=== PATIENT | male | born 1985 | race Two or more races ===

== ENCOUNTER 2016-07-08 21:25 | Emergency (ER) | payer BC ==
[~2016-07-08] VITALS: Ht 182.9 cm; Wt 88.9 kg
--- NOTE | 2016-07-08 21:59 | NUR ---
PT WALKED INTO ER C/O RIGHT FOREARM PAIN, STATES HE HIT IT ON CONCRETE ABOUT 2 1/2HRS PRIOR TO ARRIVAL WHILE PLAYING BASKETBALL. PT IS ALERT, ORIENTED X4, NO RESP DISTRESS NOTED OR REPORTED UPON ASSESSMENT... MD AT BEDSIDE..
--- NOTE | 2016-07-09 00:04 | NUR ---
Patient discharged to home in stable conditon. Written and verbal after care instructions given. Patient verbalizes understanding of instructions. pt walked out of ER unassisted with belonging and girlfriend at side...
[2016-07-09 00:05] VITALS: BP 129/87
== END 2016-07-09 00:06 | disposition home or self-care (01) ==
LOC: ER 21:25
DX: S60.221A Contusion of right hand, initial encounter (principal); X58.XXXA Exposure to other specified factors, initial encounter; Y93.67 Activity, basketball; Y99.8 Other external cause status; Y92.89 Other specified places as the place of occurrence of the external cause
CPT/HCPCS: 73060; 73080; 73090; 73110; 99284; A4663